=== PATIENT | male | born 1990 | race Hispanic/Latino ===

== ENCOUNTER 2024-08-22 17:31 | Emergency (ER) | payer SELFPAY ==
[2024-08-22 17:34] VITALS: BP 131/84
[2024-08-22 18:42] VITALS: BMI 24.6
--- NOTE | 2024-08-22 18:43 | ED.GENMED ---
History of Present Illness
General
Chief Complaint: Skin Problem
Source: patient
Exam Limitations: none
Time Seen by Provider: 08/22/24 18:28
History of Present Illness
History of Present Illness:
34yoM with no significant past medical history presenting for evaluation of a rash. Patient is Tajik speaking and history is obtained with the assistance of a video bungy jump master. He reports a red bubbling rash to his left thigh/groin/buttock
region for the past week. Rash is painful and slightly itchy. No exposure to similar rash. He is otherwise asymptomatic and denies any fevers or difficulty urinating.
Phy Exam
General Physical Exam
General Presentation: well appearing and no apparent distress
General Skin: warm and dry
General Habitus: normal
General Mental: alert
ENT Exam
ENT Exam: normocephalic
Pulmonary Exam
Pulmonary Exam: no respiratory distress
Neurological Exam
Neurological Exam: alert
Ishmael Coma Scale
Eye Opening: Spontaneous
Verbal Response: Oriented
Motor Response: Obeys Commands
GCS Total Score: 15
Skin Exam
Skin Exam: other (Scattered vesicular rash on erythematous base noted to L groin/mons pubis/L buttock. Does not cross midline. )
Psychiatric Exam
Psychiatric Exam: normal mood/affect
Course
Orders/Labs/Results
Orders:
Orders
08/22/24 18:45
Prednisone [Deltasone] 50 mg PO NOW STA
Valacyclovir HCl [Valtrex] 1,000 mg PO NOW STA
Vital Signs
Initial and Last Documented VS:
Initial Vital Signs
Temp Pulse Resp BP Pulse Ox
98.6 F 84 16 131/84 99
08/22/24 17:34 08/22/24 17:34 08/22/24 17:34 08/22/24 17:34 08/22/24 17:34
Last Documented Vital Signs
Temp Pulse Resp BP Pulse Ox
98.6 F 84 16 131/84 99
08/22/24 17:34 08/22/24 17:34 08/22/24 17:34 08/22/24 17:34 08/22/24 17:34
MDM/Problems Addressed
Differential Diagnosis Includes:
34yoM here with painful rash to L groin x 1 week. No f/c. Otherwise asymptomatic. VSS. On exam, there is a vesicular rash to the L groin/buttock/mons area that does not cross midline and follows a dermatomal pattern. Rash consistent with zoster. No
evidence of superimposed cellulitis. He was started on a course of Valtrex and prednisone. Advised f/u with PCP and patient discharged in stable condition.
*Critical Care Note
Total Time (30-74mins, 75-104mins- exclusive of procedures): Not Applicable
ED Attending Note
-
Portions of this chart may have been created with voice recognition software.� Occasional wrong word or��sound alike� substitutions may have occurred due to the inherent limitations of voice recognition software.
Discharge Plan
Departure
Patient Disposition: Home (Routine Discharge)
Date of Disposition: 08/22/24
Time of Disposition: 18:46
Patient with high blood pressure during this ER visit?: No
Discharge Problem:
Herpes zoster
Instructions: Shingles
Prescriptions:
New
prednisone 50 mg tablet
50 mg PO DAILY Qty: 4 0RF
valacyclovir [Valtrex] 1 gram tablet
1,000 mg PO Q8H 10 Days Qty: 29 0RF
Referrals:
[facility] [Outside]
Activity Restrictions/Additional Instructions:
Take Valtrex and prednisone as prescribed. Keep rash covered until completely scabbed over.
Please follow-up with a family doctor. Return to the ER with any worsening symptoms.
Interventions
Interventions:
*Risk Screen - Suicide Last Done: 08/22/24 17:34
*Neglect/Abuse Screening Last Done: 08/22/24 17:34
*Nursing Disposition Last Done: 08/22/24 19:40
ED-Skin Assessment Last Done: 08/22/24 18:43
Discharge Date and Time
Discharge Date/Time: 08/22/24 19:40
Print Language: CAMBODIAN
[2024-08-22] MEDS: DELTASONE 50 MG PO (19:29)
[2024-08-22] MEDS: VALTREX 1000 MG PO (19:30)
== END 2024-08-22 19:40 | disposition home or self-care (01) ==
LOC: EMR 17:31
PROVIDERS: EMERGENCY PHYSICIAN Emergency Medicine
DX: B02.9 Zoster without complications (principal)
CPT/HCPCS: 99282